=== PATIENT | female | born 1985 | race Caucasian/White ===

== ENCOUNTER 2021-11-19 06:32 | Day surgery (SDC) | payer BC ==
[2021-11-19] MEDS ORDERED: fentaNYL 100 MCG/2 ML SDV ONE (07:14)
[2021-11-19] MEDS ORDERED: Midazolam 1 MG/ML 2 ML SDV ONE (07:14)
[2021-11-19] MEDS ORDERED: Sodium Chloride 0.9% 1,000 ML IV SCH (07:15)
[2021-11-19] MEDS ORDERED: Propofol 200 MG/20 ML SDV ONE (07:15)
== END 2021-11-19 09:25 | disposition home or self-care (01) ==
LOC: JP.SDS 06:32
PROVIDERS: ATTEND Surgery
DX: Z12.11 Encounter for screening for malignant neoplasm of colon (principal); D12.2 Benign neoplasm of ascending colon; F32.A Depression, unspecified; Z80.0 Family history of malignant neoplasm of digestive organs; Z79.899 Other long term (current) drug therapy
CPT/HCPCS: 81025; 88305; J2250; J2704; J3010; J7030

== ENCOUNTER 2022-06-17 09:55 | Day surgery (SDC) | payer BC ==
[~2022-06-17 09:55] MED LIST: Midazolam 1 MG/ML 2 ML SDV ONE; Propofol 200 MG/20 ML SDV ONE; fentaNYL 50 MCG/ML SDV ONE
[2022-06-17] MEDS ORDERED: Sodium Chloride 0.9% 1,000 ML IV SCH (10:30)
== END 2022-06-17 12:35 | disposition home or self-care (01) ==
LOC: JP.SDS 09:55
PROVIDERS: ATTEND Surgery
DX: Z12.11 Encounter for screening for malignant neoplasm of colon (principal); Z86.010 Personal history of colon polyps; F90.9 Attention-deficit hyperactivity disorder, unspecified type
CPT/HCPCS: 45378; 81025; J2250; J2704; J3010; J7030